=== PATIENT | female | born 1995 | race Two or more races ===

== ENCOUNTER 2017-12-20 01:30 | Emergency (ER) | payer OTHER ==
[2017-12-20 01:40] VITALS: BP 116/70; PULSE 86; TEMP 98.6; BMI 22.6
--- NOTE | 2017-12-20 01:52 | PDOC ---
History of Present Illness - General Chief Complaint: Pain, Acute Stated Complaint: FOOT INJURY Time Seen by Provider: 12/20/17 01:51 Past History - Past Medical History Allergies/Adverse Reactions: Allergies Allergy/AdvReac Type Severity Reaction Status Date / Time No Known Allergies Allergy Verified 12/20/17 01:41 Home Medications: Ambulatory Orders NK [No Known Home Medication] 12/20/17 - Suicide/Smoking/Psychosocial Hx Smoking History: Never smoked Have you smoked in the past 12 months: No Information on smoking cessation initiated: No Hx Alcohol Use: No Drug/Substance Use Hx: No *Physical Exam - Vital Signs Last Vital Signs Temp Pulse Resp BP Pulse Ox 98.6 F 86 18 116/70 99 12/20/17 01:35 12/20/17 01:35 12/20/17 01:35 12/20/17 01:35 12/20/17 01:35 ED Treatment Course - RADIOLOGY Radiology Studies Ordered: Category Date Time Status FOOT-RIGHT [RAD] Stat Radiology 12/20/17 01:51 Ordered
[2017-12-20] MEDS ORDERED: NAPROXEN 500 MG TABLET (FP) PO ONE (02:02)
[2017-12-20] MEDS ORDERED: NAPROXEN 500 MG TABLET (FP) ONE (02:27)
--- NOTE | 2017-12-20 02:33 | PDOC ---
History of Present Illness - General Chief Complaint: Pain, Acute Stated Complaint: FOOT INJURY Time Seen by Provider: 12/20/17 01:51 History Source: Patient Exam Limitations: No Limitations - History of Present Illness Initial Comments: 12/20/17 02:28 21 y/o F came in because of pain in her right toe after she dropped wooden plank on her right great toe. Reports some numbness at distal part of toe .Denies bleeding, cuts. Past History - Past Medical History Allergies/Adverse Reactions: Allergies Allergy/AdvReac Type Severity Reaction Status Date / Time No Known Allergies Allergy Verified 12/20/17 01:41 Home Medications: Ambulatory Orders NK [No Known Home Medication] 12/20/17 - Suicide/Smoking/Psychosocial Hx Smoking History: Never smoked Have you smoked in the past 12 months: No Information on smoking cessation initiated: No Hx Alcohol Use: No Drug/Substance Use Hx: No *Physical Exam - Vital Signs Last Vital Signs Temp Pulse Resp BP Pulse Ox 98.6 F 86 18 116/70 99 12/20/17 01:35 12/20/17 01:35 12/20/17 01:35 12/20/17 01:35 12/20/17 01:35 - Physical Exam Extremity: positive: Other (Right great toe tenderness present at distal phalynx , bruse present under the nail, no cuts, no bleeding. Sensation to touch intact. Range of motin in ankle joint intact. No focal tenderness in any other bone of foot. ) ED Treatment Course - Medications Given in the ED: ED Medications Discontinued Medications Generic Name Dose Route Start Last Admin Trade Name Freq PRN Reason Stop Dose Admin Naproxen 500 mg 12/20/17 02:02 12/20/17 02:28 Naprosyn - PO 12/20/17 02:03 500 mg ONCE ONE Administration Medical Decision Making - Medical Decision Making 12/20/17 02:32 21 y/o F came in because of pain in her right toe after she dropped wooden plank on her right great toe. Reports some numbness at distal part of toe .Denies bleeding, cuts. we will get Xray foot. we will give her one time naproxen. 12/20/17 04:02 xray reviewed shows hairline non displaced fracture on distal phalyanx of great toe. splint applied. Discussed with Dr henson we will discharge patient to home. *DC/Admit/Observation/Transfer Diagnosis at time of Disposition: Fracture of toe of right foot Qualifiers: Encounter type: initial encounter Toe: great toe Fracture type: closed Phalanx : distal Fracture alignment: nondisplaced Qualified Code(s): S92.424A - Nondisplaced fracture of distal phalanx of right great toe, initial encounter for closed fracture - Discharge Dispostion Disposition: HOME Condition at time of disposition: Stable Decision to Admit order: No - Referrals Referrals: Woody Mendieta MD [Staff Physician] - - Patient Instructions Printed Discharge Instructions: Toe Fracture, DI for Toe Fracture Additional Instructions: You came to hospital because of pain in you great toe and found to have fracture of distal phalynx. We had applied a splint on your great toe. Follow up with orthopedic doctor ( bone doctor)on Saturday. Keep your leg elevated while you are sleeping or sitting. Take over the counter pain meds. You can also apply cold compression. Keep the splint on until you see orthopedic doctor. If swelling or pain increases in your to come back to ER. - Post Discharge Activity Forms/Work/School Notes: Back to Work
--- NOTE | 2017-12-20 03:02 | PDOC ---
Attending Attestation - Resident Resident Name: Fabio Martins - ED Attending Attestation I have performed the following: I have examined & evaluated the patient, The case was reviewed & discussed with the resident, I agree w/resident's findings & plan, Exceptions are as noted - HPI HPI: 12/20/17 02:59 21yo F no PMH presents to ED with R great toe pain after she dropped a wooden plank on her toe 2 hours prior to arrival. Reports distal numbness to R great toe. Denies other injuries. Denies recent f/c, cp/sob, abd pain, n/v/d, LE edema , dizziness. - Physicial Exam PE: 12/20/17 03:58 GENERAL: Awake, alert, and fully oriented, in no acute distress HEAD: No signs of trauma EYES: PERRLA, sclera anicteric, conjunctiva clear LUNGS: Breath sounds equal, clear to auscultation bilaterally. No wheezes, and no crackles HEART: Regular rate and rhythm, normal S1 and S2, no murmurs, rubs or gallops ABDOMEN: Soft, nontender, normoactive bowel sounds. No guarding, no rebound. No masses EXTREMITIES: R great toe ttp. Normal sensation and perfusion distally. 20% subungal hematoma near nail bed. 2+ DP pulse. NEUROLOGICAL: Normal speech, moves all extremities spontaneously SKIN: Warm, Dry, normal turgor, no rashes or lesions noted. - Medical Decision Making 12/20/17 04:11 21yo F presents to the ED with R great toe pain after dropping 10lb wooden plank directly on it. Vitals wnl. R foot NVI. +ttp to toe, small subungal hematoma. Pain controlled, no need for trephination. CXR on my read with non displaced distal tuft fracture. TOe has been splinted. Naproxen for pain control. Pt stable for DC home. I discussed the physical exam findings, ancillary test results and final diagnoses with the patient. I answered all of the patient's questions. The patient was satisfied with the care received and felt comfortable with the discharge plan and treatment plan. The patient will call their primary care physician within 24 hours to arrange follow-up and will return to the Emergency Department with any new, persistent or worsening symptoms.
== END 2017-12-20 04:31 | disposition home or self-care (01) ==
LOC: JER 01:30
PROC: 2W3RX1Z Immobilization of Left Lower Leg using Splint (ICD-10-PCS; principal; 2017-12-20)
DX: S92.424A Nondisplaced fracture of distal phalanx of right great toe, initial encounter for closed fracture (principal); W22.8XXA Striking against or struck by other objects, initial encounter; Y93.89 Activity, other specified; Y92.89 Other specified places as the place of occurrence of the external cause; Y99.8 Other external cause status
CPT/HCPCS: 73630-TC-RT-FY; 99281-25